=== PATIENT | male | born 1945 | race Caucasian/White ===

== ENCOUNTER 2019-01-06 15:01 | Emergency (ER) | payer MEDICARE, OTHER, SELFPAY ==
[2019-01-06 15:17] VITALS: BP 129/76; PULSE 85; RESP 26; TEMP 36.4; O2SAT 93; BMI 30.9
[2019-01-06 15:22] VITALS: BP 129/76; PULSE 85; RESP 26; TEMP 36.4; O2SAT 93; BMI 30.9
--- NOTE | 2019-01-06 16:01 | DI.RAD.S_ITS ---
PROCEDURE: XR CHEST 1V INDICATIONS: short of breath TECHNIQUE: One view of the chest was acquired. COMPARISON: [facility], , CHEST 2 VIEW, 08/08/2011, 12:39. 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 Lungs and pleura: Minimal increased pulmonary vascularity. No pleural effusions or pneumothorax. Mediastinum: Mediastinal contours appear normal. Heart size is normal. Bones and chest wall: No suspicious bony lesions. Overlying soft tissues appear unremarkable. IMPRESSION: Minimal increased pulmonary vascularity suggestive of edema. Dictated by: Dyana Peace M.D. on 01/06/2019 at 16:27 Approved by: Dyana Peace M.D. on 01/06/2019 at 16:29
--- NOTE | 2019-01-06 16:02 | ED.SOB ---
HPI - SOB/Dyspnea General Chief Complaint: Shortness of Breath/Dyspnea Stated Complaint: Pnuemonia not improving Time Seen by Provider: 01/06/19 15:31 Source: patient Mode of arrival: ambulatory Limitations: no limitations History of Present Illness patient is a marc 73-year-old male who presents with increasing shortness of breath. He has been on a Z-Leroy in Kef[place] for bronchitis family states that he is not getting any better. He has now started sleeping in a recliner because he cannot breathe while sleeping at night. He has not had any fevers chills no lower extremity edema no chest pain. He has worsening shortness of breath with minimal exertion such as getting dressed or going to the restroom. MD Complaint: shortness of breath Context: recent illness Severity: moderate Consistency/Duration: progressively worsening Relieving factors: rest Exacerbating factors: lying flat Related Data Allergies Allergy/AdvReac Type Severity Reaction Status Date / Time No Known Drug Allergies Allergy Verified 01/06/19 15:17 Review of Systems Review of Systems ROS Unobtainable: All systems reviewed & are unremarkable except as noted in HPI and below Constitutional Denies chills, Denies fever(s), Denies lethargy and Denies weakness Cardiovascular Denies chest pain, Denies irregular heart rhythm, Denies leg edema, Denies lightheadedness, Denies palpitations, Reports dyspnea, Reports dyspnea on exertion and Denies orthopnea Respiratory Denies cough, Reports dyspnea, Reports dyspnea on exertion and Denies wheezing Gastrointestinal Gastrointestinal: Denies abdominal pain, Denies change in bowel habits, Denies diarrhea, Denies nausea and Denies vomiting Musculoskeletal Denies back pain, Denies muscle weakness, Denies numbness and Denies tingling Integumentary/Breasts Denies pruritus, Denies erythema, Denies rash and Denies wounds Neurologic Denies numbness, Denies tingling and Denies weakness Endocrine Denies palpitations Allergic/Immunologic Denies wheezing [facility] Medical History Patient denies significant medical history (Acute) Social History Smoking Status: Never smoker Social History Smoking Status: Never smoker Exam Initial Vital Signs Initial Vital Signs: Vital Signs Temperature 97.6 F 01/06/19 15:17 Pulse Rate 85 01/06/19 15:17 Respiratory Rate 26 H 01/06/19 15:17 Blood Pressure 129/76 01/06/19 15:17 Pulse Oximetry 93 01/06/19 15:17 GENERAL: alert well-appearing male no acute distress HEENT: Head atraumatic,EOMI, pupils reactive, no JVD CARDIOVASCULAR: Regular rate and rhythm without murmurs, rubs or gallops. RESPIRATORY: slight rales at bases no conversational dyspnea weeks in full sentences no tachypnea ABDOMEN: Soft, nontender. Normoactive bowel sounds all 4 quadrants. No guarding or rebound. EXTREMITIES: Normal range of motion, no clubbing or edema. Neurovascularly intact NEUROLOGICAL: Alert and oriented x4.Normal gait and speech. Cranial nerves II through XII grossly intact. SKIN: Warm, dry, no laceration, no petechiae, no rashes or lesions. Course Orders Ordered: ED Orders 01/06/19 15:25 EKG-12 Lead Stat 01/06/19 16:01 Consult to Respiratory Therapy Evaluate & Treat XR chest 1V Stat 01/06/19 16:10 Basic Metabolic Panel Stat Complete Blood Count AUTO DIFF Stat Lactate (Lactic Acid) Stat Troponin & CK Cardiac Panel Stat 01/06/19 16:34 B Type Natriuretic Peptide Stat Discontinued Medications Albuterol (Ventolin Hfa Prepack) 1 box MISC SEEINSTR ONE Stop: 01/06/19 18:51 Last Admin: 01/06/19 18:56 Dose: 1 box Albuterol/Ipratropium (Duoneb) 3 ml INH NOW ONE Stop: 01/06/19 16:02 Last Admin: 01/06/19 16:30 Dose: 3 ml Furosemide (Lasix) 20 mg IV NOW ONE Stop: 01/06/19 17:24 Last Admin: 01/06/19 17:36 Dose: 20 mg Vital Signs - 8 hr 01/06/19 15:17 01/06/19 15:22 01/06/19 16:31 Temperature 97.6 F 97.6 F Pulse Rate 85 85 78 Respiratory Rate 26 H 26 H 20 Blood Pressure 129/76 129/76 Blood Pressure [Right Arm] Pulse Oximetry 93 93 93 01/06/19 16:52 Temperature Pulse Rate 85 Respiratory Rate 20 Blood Pressure Blood Pressure [Right Arm] 136/64 Pulse Oximetry 92 MDM - SOB/Dyspnea Lab Data Attestation: I reviewed the patient's lab results. Result diagrams: 01/06/19 16:10 01/06/19 16:10 Lab Results 01/06/19 01/06/19 01/06/19 Range/Units 16:10 16:10 16:10 WBC 10.0 (4.5-11.0) X10^3/uL RBC 5.19 (4.5-5.9) X10^6/uL Hgb 14.9 (13.5-17.5) g/dL Hct 44.7 (41-53) % MCV 86.1 (80-100) fL MCH 28.7 (26-34) PG MCHC 33.3 (30-36) % RDW 14.5 (11.6-14.8) % Plt Count 296 (150-400) X10^3/uL Neut % (Auto) 74.3 (50-75) % Lymph % (Auto) 12.7 L (25-40) % [place] % (Auto) 9.3 (3-14) % Eos % (Auto) 2.5 (2-4) % Baso % (Auto) 1.2 (0-2) % Neut # (Auto) 7400 H (8987-0485) /uL Lymph # (Auto) 1300 (1356-5046) /uL [place] # (Auto) 900 (0-900) /uL Eos # (Auto) 300 (0-450) /uL Baso # (Auto) 100 (0-100) /uL Sodium 138 (137-145) mmol/L Potassium 3.8 (3.4-5.1) mmol/L Chloride 102 (98-107) mmol/L Carbon Dioxide 23 (22-32) mmol/L BUN 11 (9-20) mg/dL Creatinine 0.90 (0.66-1.25) mg/dL Estimated GFR > 60.0 (>60) mL/min BUN/Creatinine Ratio 12.2 (6-22) Glucose 124 H (80-110) mg/dL Lactate 1.8 (0.7-2.1) mmol/L Calcium 9.1 (8.4-10.2) mg/dL Total Creatine Kinase 44 L (55-170) U/L CK-MB (CK-2) TNP CK-MB (CK-2) Rel Index TNP Troponin I < 0.012 (0.01-0.034) ng/mL B-Natriuretic Peptide (<100) 01/06/19 Range/Units 16:34 WBC (4.5-11.0) X10^3/uL RBC (4.5-5.9) X10^6/uL Hgb (13.5-17.5) g/dL Hct (41-53) % MCV (80-100) fL MCH (26-34) PG MCHC (30-36) % RDW (11.6-14.8) % Plt Count (150-400) X10^3/uL Neut % (Auto) (50-75) % Lymph % (Auto) (25-40) % [place] % (Auto) (3-14) % Eos % (Auto) (2-4) % Baso % (Auto) (0-2) % Neut # (Auto) (2504-7179) /uL Lymph # (Auto) (2340-0258) /uL [place] # (Auto) (0-900) /uL Eos # (Auto) (0-450) /uL Baso # (Auto) (0-100) /uL Sodium (137-145) mmol/L Potassium (3.4-5.1) mmol/L Chloride (98-107) mmol/L Carbon Dioxide (22-32) mmol/L BUN (9-20) mg/dL Creatinine (0.66-1.25) mg/dL Estimated GFR (>60) mL/min BUN/Creatinine Ratio (6-22) Glucose (80-110) mg/dL Lactate (0.7-2.1) mmol/L Calcium (8.4-10.2) mg/dL Total Creatine Kinase (55-170) U/L CK-MB (CK-2) CK-MB (CK-2) Rel Index Troponin I (0.01-0.034) ng/mL B-Natriuretic Peptide < 100 (<100) Urine Dip Bedside Urine Glucose Negative Bedside Urine Bilirubin - Negative Bedside Urine Ketone - Negative Urine Specific [place] 1.015 Bedside Urine Occult Blood - Negative Bedside Urine pH 6.0 Bedside Urine Protein - Negative Bedside Urine Urobilinogen - Negative Bedside Urine Nitrite - Negative Bedside Urine Leukocytes - Negative Esterase Imaging Data Chest x-ray: Radiologist's impression: PROCEDURE: XR CHEST 1V INDICATIONS: short of breath TECHNIQUE: One view of the chest was acquired. COMPARISON: [facility], , CHEST 2 VIEW, 08/08/2011, 12:39. FINDINGS: Surgical changes and devices: Tubing overlying the right neck and hemithorax, likely ST[employer] DERRICK[employer]GER shunt. Lungs and pleura: Minimal increased pulmonary vascularity. No pleural effusions or pneumothorax. Mediastinum: Mediastinal contours appear normal. Heart size is normal. Bones and chest wall: No suspicious bony lesions. Overlying soft tissues appear unremarkable. IMPRESSION: Minimal increased pulmonary vascularity suggestive of edema. Dictated by: Dyana Peace M.D. on 01/06/2019 at 16:27 ECG Data Attestation: I personally reviewed and interpreted this ECG as follows: Prior ECG tracings: available for review MDM Narrative Medical decision making narrative: Patient is sound slightly wet but actually cleared with albuterol. X-ray does show some mild pulmonary congestion however his BNP is less than 100. No history of congestive heart failure no edema. He also does have some orthopnea. Patient is given 1 dose of Lasix in the ED he has urinated multiple times. He and family state that he got significantly better with albuterol. at this time not convinced of congestive heart failure. Possibly bronchitis he has had coughing episodes into antibiotics. This time he has no leukocytosis he is afebrile I do not think he needs any further antibiotics. I do recommend follow-up with his PCP in regards to his heart. He had an ambulation trial O2 remained above 90 with conversation and ambulation. Discharge Plan Departure Patient Disposition: Home Clinical Impression: Bronchitis Instructions: Acute Bronchitis Activity Restrictions/Additional Instructions: *You have been diagnosed with Bronchitis *What to do: at this time you do some mild fluid on your x-ray recommend further evaluation of your heart for possible congestive heart failure with your primary care doctor. This is likely more of a bronchitis you have already been on antibiotics. No need for more antibiotic. X-ray does not show any pneumonia. Blood work also reassuring. *Continue to take medications as directed Albuterol 1-2 puffs with spacer every 4 hr if needed for coughing episodes or shortness of breath *Follow up with your primary care provider in 2-3 days *Return to ER if you should have increasing shortness of breath, fever, albuterol not working or needing it more frequently or any new, worsening or concerning symptoms Referrals: Danish Nielson MD [Primary Care Provider] -
[2019-01-06 16:22] LABS: Add Manual Diff / Slide Review NO; Basophils Absolute Auto 100 /uL (0-100); Basophils Percent Auto 1.2 % (0-2); Eosinophils Absolute Auto 300 /uL (0-450); Eosinophils Percent Auto 2.5 % (2-4); Hematocrit 44.7 % (41-53); Hemoglobin 14.9 g/dL (13.5-17.5); Lymphocytes Absolute Auto 1300 /uL (1100-4500); Lymphocytes Percent Auto 12.7 % (25-40); Mean Corpuscular HGB Conc 33.3 % (30-36); Mean Corpuscular Hemoglobin 28.7 PG (26-34); Mean Corpuscular Volume 86.1 fL (80-100); Monocytes Absolute Auto 900 /uL (0-900); Monocytes Percent Auto 9.3 % (3-14); Neutrophils Absolute Auto 7400 /uL (1500-7000); Neutrophils Percent Auto 74.3 % (50-75); Platelet Count 296 X10^3/uL (150-400); Red Blood Cell Count 5.19 X10^6/uL (4.5-5.9); Red Cell Distribution Width 14.5 % (11.6-14.8)
[2019-01-06 16:30] LABS: Lactate (Lactic Acid) 1.8 mmol/L (0.7-2.1)
[2019-01-06] MEDS: ALBUTEROL/IPRATROPIUM 3 ML AMPUL INH (16:30)
[2019-01-06 16:31] VITALS: PULSE 78; RESP 20; O2SAT 93
[2019-01-06 16:31] LABS: BUN Creatinine Ratio 12.2 (6-22); Blood Urea Nitrogen 11 mg/dL (9-20); Calcium 9.1 mg/dL (8.4-10.2); Carbon Dioxide 23 mmol/L (22-32); Chloride 102 mmol/L (98-107); Creatine Kinase 44 U/L (55-170); Estimated Glomerular Filt Rate > 60.0 mL/min (>60); Glucose 124 mg/dL (80-110); HEMOLYSIS < 15 (0-50); Potassium 3.8 mmol/L (3.4-5.1); Sodium 138 mmol/L (137-145)
[2019-01-06 16:43] LABS: Troponin I < 0.012 ng/mL (0.01-0.034)
[2019-01-06 16:52] VITALS: BP 136/64; PULSE 85; RESP 20; O2SAT 92
[2019-01-06] MEDS: FUROSEMIDE 20 MG/2 ML VIAL IV (17:36)
[2019-01-06 17:44] LABS: B Type Natriuretic Peptide < 100 (<100)
[2019-01-06 17:45] VITALS: BP 153/83; PULSE 112; RESP 20; O2SAT 99
--- NOTE | 2019-01-06 18:37 | RT ---
Pt instructed proper MDI and spacer usage; spacer issued with pamphlet.
[2019-01-06] MEDS: ALBUTEROL HFA PREPACK 1 BOX MISC (18:56)
[2019-01-06 19:41] VITALS: BP 141/79; PULSE 104; RESP 18; TEMP 37.1; O2SAT 99
== END 2019-01-06 19:44 | disposition home or self-care (01) ==
PROVIDERS: Emergency Provider Emergency Medicine; PCP Family Medicine
DX: J40 Bronchitis, not specified as acute or chronic (principal)
CPT/HCPCS: 36591; 71045; 80048; 81003; 82550; 83605; 83880; 84484; 85025; 93005; 94640; 96374; 99283; 99285; J1940

== ENCOUNTER 2019-01-25 11:33 | Emergency (ER) | payer MEDICARE, OTHER, SELFPAY ==
[2019-01-25 11:44] VITALS: BP 124/72; PULSE 97; RESP 22; TEMP 36.5; O2SAT 93
[2019-01-25 13:03] LABS: Add Manual Diff / Slide Review NO; Basophils Absolute Auto 100 /uL (0-100); Basophils Percent Auto 0.8 % (0-2); Eosinophils Absolute Auto 300 /uL (0-450); Eosinophils Percent Auto 2.2 % (2-4); Hematocrit 47.2 % (41-53); Hemoglobin 15.4 g/dL (13.5-17.5); Lymphocytes Absolute Auto 1300 /uL (1100-4500); Lymphocytes Percent Auto 10.9 % (25-40); Mean Corpuscular HGB Conc 32.7 % (30-36); Mean Corpuscular Hemoglobin 28.3 PG (26-34); Mean Corpuscular Volume 86.6 fL (80-100); Monocytes Absolute Auto 1000 /uL (0-900); Monocytes Percent Auto 8.9 % (3-14); Neutrophils Absolute Auto 9000 /uL (1500-7000); Neutrophils Percent Auto 77.2 % (50-75); Platelet Count 325 X10^3/uL (150-400); Red Blood Cell Count 5.45 X10^6/uL (4.5-5.9); Red Cell Distribution Width 14.8 % (11.6-14.8); White Blood Cell Count 11.7 X10^3/uL (4.5-11.0)
--- NOTE | 2019-01-25 13:05 | ED.URI ---
HPI - URI/Sore Throat General Chief Complaint: Upper Respiratory Symptoms Stated Complaint: bronchitis and pneumonia,sent by Dr Nielson Time Seen by Provider: 01/25/19 11:56 Source: patient and other (note from pcp's office) Mode of arrival: ambulatory Limitations: no limitations History of Present Illness HPI Narrative: This is a 73-year-old male who comes to the emergency department with complaint of shortness of breath. Patient states it gets worse when he walks. Patient states he has been treated with antibiotics, is a little bit of Lasix as well as nebulizer treatments. He states that they seem to make it a little bit better but then he would get worse again. He denies any fevers. He denies any chest pain or pressure, he states he does get short of breath when he ambulates any kind a distance. If he is sitting still he states fine. He has had a cough which he states is mild and nonproductive. He denies any nausea no vomiting no other GI or urinary symptoms. He has not noted any swelling in his lower extremities. States he had a chest x-ray earlier in the week which showed some kind of change he is unclear what it is but that he was asked by his physician who called him today to go to the hospital to get a CT scan of his chest. Patient denies any past cardiac history, he denies any past pulmonary history, he denies any past tobacco use or secondhand smoke. Related Data Home Medications Medication Instructions Recorded Confirmed furosemide 20 mg PO DAILY 01/25/19 01/25/19 ipratropium-albuterol 3 ml INHALATION QID 01/25/19 01/25/19 omeprazole 20 mg PO DAILY 01/25/19 01/25/19 simvastatin 40 mg PO DAILY 01/25/19 01/25/19 telmisartan [Micardis] 40 mg PO DAILY 01/25/19 01/25/19 Previous Rx's Medication Instructions Recorded doxycycline hyclate 100 mg PO BID #20 cap 01/25/19 Allergies Allergy/AdvReac Type Severity Reaction Status Date / Time No Known Drug Allergies Allergy Verified 01/06/19 15:17 Review of Systems Review of Systems ROS Unobtainable: All systems reviewed & are unremarkable except as noted in HPI and below Constitutional Denies chills, Denies fever(s), Denies lethargy and Denies weakness Cardiovascular Denies chest pain, Denies chest pain at rest, Denies chest pain with activity, Denies diaphoresis, Denies syncope, Denies rapid heart rate, Denies irregular heart rhythm, Denies leg edema, Denies lightheadedness, Denies radiating jaw, neck or arm pain, Denies palpitations, Reports dyspnea on exertion and Denies orthopnea Respiratory Denies change in phlegm color, Denies chest congestion, Reports cough, Denies hemoptysis, Denies excessive phlegm production, Denies pain with cough, Reports dyspnea on exertion and Denies wheezing Gastrointestinal Gastrointestinal: Denies abdominal pain, Denies change in bowel habits, Denies diarrhea, Denies nausea and Denies vomiting Genitourinary Denies hematuria, Denies flank pain, Denies urinary incontinence and Denies urinary urgency Neurologic Denies syncope and Denies weakness Endocrine Denies palpitations Allergic/Immunologic Denies wheezing [facility] Medical History Dyslipidemia (Acute) Hypertension (Acute) Patient denies significant medical history (Acute) Social History Smoking Status: Never smoker Social History household members: none lives independently: Yes Smoking Status: Never smoker Exam Narrative Exam Narrative: GENERAL: Alert and oriented x three, well-nourished, well-appearing male in mild distress. HEENT: Head normocephalic, atraumatic, EOMI, pupils reactive, face symmetric, moist mucous membranes NECK: Supple, full range of motion CARDIOVASCULAR: Regular rate and rhythm without murmurs, rubs or gallops. RESPIRATORY: Breath sounds equal bilaterally, no wheezes rales or rhonchi. No tachypnea, no accessory muscle use. The patient has very mild dry cough in the room. ABDOMEN: Soft, nontender. Normoactive bowel sounds all 4 quadrants. No guarding or rebound, rigidity, no mass : No CVA tenderness EXTREMITIES: Normal range of motion, no clubbing or edema. Neurovascularly intact NEUROLOGICAL: Cranial nerves II through XII grossly intact. Moving all extremities SKIN: Warm, dry, no petechiae, no rashes or lesions. Initial Vital Signs Initial Vital Signs: Vital Signs Temperature 97.7 F 01/25/19 11:44 Pulse Rate 97 H 01/25/19 11:44 Respiratory Rate 22 01/25/19 11:44 Blood Pressure 124/72 01/25/19 11:44 Pulse Oximetry 93 01/25/19 11:44 Course Orders Ordered: ED Orders 01/25/19 12:22 EKG-12 Lead Stat 01/25/19 12:42 B Type Natriuretic Peptide Stat Basic Metabolic Panel Stat Complete Blood Count AUTO DIFF Stat Troponin & CK Cardiac Panel Stat 01/25/19 14:03 CT angio chest PE protocol Stat Vital Signs - 8 hr 01/25/19 11:44 01/25/19 13:06 01/25/19 15:54 Temperature 97.7 F Pulse Rate 97 H 91 H 110 H Respiratory Rate 22 20 28 H Blood Pressure 124/72 Blood Pressure [Left Arm] 112/73 Pulse Oximetry 93 97 93 01/25/19 16:41 Temperature Pulse Rate 93 H Respiratory Rate 20 Blood Pressure Blood Pressure [Left Arm] 147/90 H Pulse Oximetry 94 MDM - URI/Sore Throat Lab Data Attestation: I reviewed the patient's lab results. Result diagrams: 01/25/19 12:42 01/25/19 12:42 Lab Results 01/25/19 01/25/19 Range/Units 12:42 12:42 WBC 11.7 H (4.5-11.0) X10^3/uL RBC 5.45 (4.5-5.9) X10^6/uL Hgb 15.4 (13.5-17.5) g/dL Hct 47.2 (41-53) % MCV 86.6 (80-100) fL MCH 28.3 (26-34) PG MCHC 32.7 (30-36) % RDW 14.8 (11.6-14.8) % Plt Count 325 (150-400) X10^3/uL Neut % (Auto) 77.2 H (50-75) % Lymph % (Auto) 10.9 L (25-40) % [place] % (Auto) 8.9 (3-14) % Eos % (Auto) 2.2 (2-4) % Baso % (Auto) 0.8 (0-2) % Neut # (Auto) 9000 H (8518-9518) /uL Lymph # (Auto) 1300 (2418-5903) /uL [place] # (Auto) 1000 H (0-900) /uL Eos # (Auto) 300 (0-450) /uL Baso # (Auto) 100 (0-100) /uL Sodium 137 (137-145) mmol/L Potassium 4.1 (3.4-5.1) mmol/L Chloride 100 (98-107) mmol/L Carbon Dioxide 24 (22-32) mmol/L BUN 20 (9-20) mg/dL Creatinine 1.10 (0.66-1.25) mg/dL Estimated GFR > 60.0 (>60) mL/min BUN/Creatinine Ratio 18.2 (6-22) Glucose 103 (80-110) mg/dL Calcium 9.6 (8.4-10.2) mg/dL Total Creatine Kinase 44 L (55-170) U/L CK-MB (CK-2) TNP CK-MB (CK-2) Rel Index TNP Troponin I < 0.012 (0.01-0.034) ng/mL B-Natriuretic Peptide < 100 (<100) Imaging Data CT scan - chest: Radiologist's impression: 44 Alicja Beckford, Find Patient Imaging Josue Ross 73 M 1945 ACTIVITY DATE EXAM STATUS AUTHOR 01/25/19 14:03 [place] [address] CT Scan Report Signed Patient: Josue Ross R#: [id number] : 3Acct:[id number] Age/Sex: 73 / MDate of Service: 01/25/19 Loc: ED Accession Number: [id number] Procedure: CT angio chest PE protocol Ordering Provider: Alicja Beckford D.O. PROCEDURE: CT ANGIO CHEST PE PROTOCOL INDICATIONS: sob, failed tx for pna x 3, ? on outside xray TECHNIQUE: After the administration of intravenous contrast, 2 mm thick sections acquired from the pulmonary apices to the posterior costophrenic angles. 3-dimensional maximum intensity projection (MIP) coronal and sagittal reformats were then acquired through the thorax. For radiation dose reduction, the following was used: automated exposure control, adjustment of mA and/or kV according to patient size. COMPARISON: [facility], , XR CHEST 1V, 01/06/2019, 16:16. FINDINGS: Image quality: Excellent. Pulmonary arteries: Pulmonary arteries are normal in size, and demonstrate no intraluminal filling defects to suggest central pulmonary embolism. Lungs and pleura: Focal and patchy consolidation noted in the lung bases bilaterally right greater than left concerning for aspiration versus pneumonia. Trace right pleural effusion. No pneumothorax. Central and peripheral airways are patent. Mediastinum: Heart size is normal, without pericardial effusion. Atherosclerotic calcifications are noted in the aorta, great vessels and the coronary vasculature. No mediastinal or hilar adenopathy. Thoracic aorta is normal in caliber and enhancement. Esophagus is normal in caliber, without hiatal hernia. Bones and chest wall: No suspicious bony lesions. Ribs and thoracic spine appear intact throughout. Spine degenerative disc disease and facet arthropathy. Thyroid gland is within normal limits. No axillary or supraclavicular adenopathy. Abdomen: Visualized upper abdominal solid organs appear normal in the early arterial phase of enhancement. IMPRESSION: 1. No pulmonary embolus. 2. Multifocal consolidation involving the lung bases bilaterally suspicious for pneumonia versus aspiration. Dictated by: Soo Verdugo MD, PhD on 01/25/2019 at 14:51 Approved by: Soo Verdugo MD, PhD on 01/25/2019 at 14:58 ECG Data Attestation: I personally reviewed and interpreted this ECG as follows: Interpretation: Sinus rhythm no ST elevation or depression, left axis deviation rate of 89 LA interval 175 QRS of 90 and QTC of 395. MDM Narrative Medical decision making narrative: patient's lab works reviewed white count is 11, troponin and BNP are normal range. CT shows no plate pulmonary embolism. Multifocal consolidation involving lung bases bilaterally suspicious for pneumonia versus aspiration. I discussed with Dr. Early who is covering for patient's primary care Dr. Nielson. Discussed continuing his antibiotics which he states were doxycycline for another 7 days and 100 mg twice daily. Patient has follow-up on Monday for recheck we also discussed they may wish to follow or evaluate patient for aspiration. I also discussed this with the patient and his family. Patient had an ambulatory pulse ox of 93-94%. Discharge Plan Departure Patient Disposition: Home Clinical Impression: Dyspnea, Pneumonia Discharge Date/Time: 01/25/19 16:42 Interventions: ED Discharge Assessment Last Done: 01/25/19 16:42 Instructions: DI for Pneumonia -- Adult Activity Restrictions/Additional Instructions: Follow-up with your primary care physician in the next 3-5 days for recheck. Continue antibiotics twice daily as prescribed. Continue your other home medications as prescribed. Discussed with your physician if they wish to have a swallow eval or other testing regarding possible aspiration causing her symptoms. Return to the emergency department for new fevers, increasing shortness of breath, new chest pain or pressure, syncope, lightheadedness, persistent vomiting or other new or concerning symptoms. Prescriptions: New doxycycline hyclate 100 mg capsule 100 mg PO BID Qty: 20 RF: 0 No Action ipratropium-albuterol 0.5 mg-3 mg(2.5 mg base)/3 mL solution for nebulization 3 ml Inhalation QID RF: 0 simvastatin 40 mg tablet 40 mg PO DAILY RF: 0 telmisartan [Micardis] 40 mg tablet 40 mg PO DAILY RF: 0 omeprazole 20 mg capsule,delayed release(DR/EC) 20 mg PO DAILY RF: 0 furosemide 20 mg tablet 20 mg PO DAILY RF: 0 Referrals: Danish Nielson MD [Primary Care Provider] -
[2019-01-25 13:06] VITALS: BP 112/73; PULSE 91; RESP 20; O2SAT 97
[2019-01-25 13:12] LABS: BUN Creatinine Ratio 18.2 (6-22); Blood Urea Nitrogen 20 mg/dL (9-20); Calcium 9.6 mg/dL (8.4-10.2); Carbon Dioxide 24 mmol/L (22-32); Chloride 100 mmol/L (98-107); Creatine Kinase 44 U/L (55-170); Estimated Glomerular Filt Rate > 60.0 mL/min (>60); Glucose 103 mg/dL (80-110); HEMOLYSIS < 15 (0-50); Potassium 4.1 mmol/L (3.4-5.1); Sodium 137 mmol/L (137-145)
[2019-01-25 13:24] LABS: Troponin I < 0.012 ng/mL (0.01-0.034)
[2019-01-25 13:40] LABS: B Type Natriuretic Peptide < 100 (<100)
--- NOTE | 2019-01-25 14:03 | DI.CT.S_ITS ---
PROCEDURE: CT ANGIO CHEST PE PROTOCOL INDICATIONS: sob, failed tx for pna x 3, ? on outside xray TECHNIQUE: After the administration of intravenous contrast, 2 mm thick sections acquired from the pulmonary apices to the posterior costophrenic angles. 3-dimensional maximum intensity projection (MIP) coronal and sagittal reformats were then acquired through the thorax. For radiation dose reduction, the following was used: automated exposure control, adjustment of mA and/or kV according to patient size. COMPARISON: [facility], , XR CHEST 1V, 01/06/2019, 16:16. FINDINGS: Image quality: Excellent. Pulmonary arteries: Pulmonary arteries are normal in size, and demonstrate no intraluminal filling defects to suggest central pulmonary embolism. Lungs and pleura: Focal and patchy consolidation noted in the lung bases bilaterally right greater than left concerning for aspiration versus pneumonia. Trace right pleural effusion. No pneumothorax. Central and peripheral airways are patent. Mediastinum: Heart size is normal, without pericardial effusion. Atherosclerotic calcifications are noted in the aorta, great vessels and the coronary vasculature. No mediastinal or hilar adenopathy. Thoracic aorta is normal in caliber and enhancement. Esophagus is normal in caliber, without hiatal hernia. Bones and chest wall: No suspicious bony lesions. Ribs and thoracic spine appear intact throughout. Spine degenerative disc disease and facet arthropathy. Thyroid gland is within normal limits. No axillary or supraclavicular adenopathy. Abdomen: Visualized upper abdominal solid organs appear normal in the early arterial phase of enhancement. IMPRESSION: 1. No pulmonary embolus. 2. Multifocal consolidation involving the lung bases bilaterally suspicious for pneumonia versus aspiration. Dictated by: Soo Verdugo MD, PhD on 01/25/2019 at 14:51 Approved by: Soo Verdugo MD, PhD on 01/25/2019 at 14:58
--- NOTE | 2019-01-25 14:32 | ED_ITS ---
HPI - URI/Sore Throat General Chief Complaint: Upper Respiratory Symptoms Stated Complaint: bronchitis and pneumonia,sent by Dr Nielson Time Seen by Provider: 01/25/19 11:56 Source: patient and other (note from pcp's office) Mode of arrival: ambulatory Limitations: no limitations History of Present Illness HPI Narrative: This is a 73-year-old male who comes to the emergency department with complaint of shortness of breath. Patient states it gets worse when he walks. Patient states he has been treated with antibiotics, is a little bit of Lasix as well as nebulizer treatments. He states that they seem to make it a little bit better but then he would get worse again. He denies any fevers. He denies any chest pain or pressure, he states he does get short of breath when he ambulates any kind a distance. If he is sitting still he states fine. He has had a cough which he states is mild and nonproductive. He denies any nausea no vomiting no other GI or urinary symptoms. He has not noted any swelling in his lower extremities. States he had a chest x-ray earlier in the week which showed some kind of change he is unclear what it is but that he was asked by his physician who called him today to go to the hospital to get a CT scan of his chest. Patient denies any past cardiac history, he denies any past pulmonary history, he denies any past tobacco use or secondhand smoke. Related Data Home Medications Medication Instructions Recorded Confirmed furosemide 20 mg PO DAILY 01/25/19 01/25/19 ipratropium-albuterol 3 ml INHALATION QID 01/25/19 01/25/19 omeprazole 20 mg PO DAILY 01/25/19 01/25/19 simvastatin 40 mg PO DAILY 01/25/19 01/25/19 telmisartan [Micardis] 40 mg PO DAILY 01/25/19 01/25/19 Previous Rx's Medication Instructions Recorded doxycycline hyclate 100 mg PO BID #20 cap 01/25/19 Allergies Allergy/AdvReac Type Severity Reaction Status Date / Time No Known Drug Allergies Allergy Verified 01/06/19 15:17 Review of Systems Review of Systems ROS Unobtainable: All systems reviewed & are unremarkable except as noted in HPI and below Constitutional Denies chills, Denies fever(s), Denies lethargy and Denies weakness Cardiovascular Denies chest pain, Denies chest pain at rest, Denies chest pain with activity, Denies diaphoresis, Denies syncope, Denies rapid heart rate, Denies irregular heart rhythm, Denies leg edema, Denies lightheadedness, Denies radiating jaw, neck or arm pain, Denies palpitations, Reports dyspnea on exertion and Denies orthopnea Respiratory Denies change in phlegm color, Denies chest congestion, Reports cough, Denies hemoptysis, Denies excessive phlegm production, Denies pain with cough, Reports dyspnea on exertion and Denies wheezing Gastrointestinal Gastrointestinal: Denies abdominal pain, Denies change in bowel habits, Denies diarrhea, Denies nausea and Denies vomiting Genitourinary Denies hematuria, Denies flank pain, Denies urinary incontinence and Denies urinary urgency Neurologic Denies syncope and Denies weakness Endocrine Denies palpitations Allergic/Immunologic Denies wheezing [facility] Medical History Dyslipidemia (Acute) Hypertension (Acute) Patient denies significant medical history (Acute) Social History Smoking Status: Never smoker Social History household members: none lives independently: Yes Smoking Status: Never smoker Exam Narrative Exam Narrative: GENERAL: Alert and oriented x three, well-nourished, well- appearing male in mild distress. HEENT: Head normocephalic, atraumatic, EOMI, pupils reactive, face symmetric, moist mucous membranes NECK: Supple, full range of motion CARDIOVASCULAR: Regular rate and rhythm without murmurs, rubs or gallops. RESPIRATORY: Breath sounds equal bilaterally, no wheezes rales or rhonchi. No tachypnea, no accessory muscle use. The patient has very mild dry cough in the room. ABDOMEN: Soft, nontender. Normoactive bowel sounds all 4 quadrants. No guarding or rebound, rigidity, no mass : No CVA tenderness EXTREMITIES: Normal range of motion, no clubbing or edema. Neurovascularly intact NEUROLOGICAL: Cranial nerves II through XII grossly intact. Moving all extremities SKIN: Warm, dry, no petechiae, no rashes or lesions. Initial Vital Signs Initial Vital Signs: Vital Signs Temperature 97.7 F 01/25/19 11:44 Pulse Rate 97 H 01/25/19 11:44 Respiratory Rate 22 01/25/19 11:44 Blood Pressure 124/72 01/25/19 11:44 Pulse Oximetry 93 01/25/19 11:44 Course Orders Ordered: ED Orders 01/25/19 12:22 EKG-12 Lead Stat 01/25/19 12:42 B Type Natriuretic Peptide Stat Basic Metabolic Panel Stat Complete Blood Count AUTO DIFF Stat Troponin & CK Cardiac Panel Stat 01/25/19 14:03 CT angio chest PE protocol Stat Vital Signs - 8 hr 01/25/19 11:44 01/25/19 13:06 01/25/19 15:54 Temperature 97.7 F Pulse Rate 97 H 91 H 110 H Respiratory Rate 22 20 28 H Blood Pressure 124/72 Blood Pressure [Left Arm] 112/73 Pulse Oximetry 93 97 93 01/25/19 16:41 Temperature Pulse Rate 93 H Respiratory Rate 20 Blood Pressure Blood Pressure [Left Arm] 147/90 H Pulse Oximetry 94 MDM - URI/Sore Throat Lab Data Attestation: I reviewed the patient's lab results. Result diagrams: 01/25/19 12:42 01/25/19 12:42 Lab Results 01/25/19 01/25/19 Range/Units 12:42 12:42 WBC 11.7 H (4.5-11.0) X10^3/uL RBC 5.45 (4.5-5.9) X10^6/uL Hgb 15.4 (13.5-17.5) g/dL Hct 47.2 (41-53) % MCV 86.6 (80-100) fL MCH 28.3 (26-34) PG MCHC 32.7 (30-36) % RDW 14.8 (11.6-14.8) % Plt Count 325 (150-400) X10^3/uL Neut % (Auto) 77.2 H (50-75) % Lymph % (Auto) 10.9 L (25-40) % [place] % (Auto) 8.9 (3-14) % Eos % (Auto) 2.2 (2-4) % Baso % (Auto) 0.8 (0-2) % Neut # (Auto) 9000 H (5304-0199) /uL Lymph # (Auto) 1300 (6451-1629) /uL [place] # (Auto) 1000 H (0-900) /uL Eos # (Auto) 300 (0-450) /uL Baso # (Auto) 100 (0-100) /uL Sodium 137 (137-145) mmol/L Potassium 4.1 (3.4-5.1) mmol/L Chloride 100 (98-107) mmol/L Carbon Dioxide 24 (22-32) mmol/L BUN 20 (9-20) mg/dL Creatinine 1.10 (0.66-1.25) mg/dL Estimated GFR > 60.0 (>60) mL/min BUN/Creatinine Ratio 18.2 (6-22) Glucose 103 (80-110) mg/dL Calcium 9.6 (8.4-10.2) mg/dL Total Creatine Kinase 44 L (55-170) U/L CK-MB (CK-2) TNP CK-MB (CK-2) Rel Index TNP Troponin I < 0.012 (0.01-0.034) ng/mL B-Natriuretic Peptide < 100 (<100) Imaging Data CT scan - chest: Radiologist's impression: 44 Alicja Beckford, Find Patient Imaging Josue Ross 73 M 1945 ACTIVITY DATE EXAM STATUS AUTHOR 01/25/19 14:03 [place] [address] CT Scan Report Signed Patient: Josue Ross R#: [id number] : 3Acct:[id number] Age/Sex: 73 / MDate of Service: 01/25/19 Loc: ED Accession Number: [id number] Procedure: CT angio chest PE protocol Ordering Provider: Alicja Beckford D.O. PROCEDURE: CT ANGIO CHEST PE PROTOCOL INDICATIONS: sob, failed tx for pna x 3, ? on outside xray TECHNIQUE: After the administration of intravenous contrast, 2 mm thick sections acquired from the pulmonary apices to the posterior costophrenic angles. 3-dimensional maximum intensity projection (MIP) coronal and sagittal reformats were then acquired through the thorax. For radiation dose reduction, the following was used: automated exposure control, adjustment of mA and/or kV according to patient size. COMPARISON: [facility], , XR CHEST 1V, 01/06/2019, 16:16. FINDINGS: Image quality: Excellent. Pulmonary arteries: Pulmonary arteries are normal in size, and demonstrate no intraluminal filling defects to suggest central pulmonary embolism. Lungs and pleura: Focal and patchy consolidation noted in the lung bases bilaterally right greater than left concerning for aspiration versus pneumonia. Trace right pleural effusion. No pneumothorax. Central and peripheral airways are patent. Mediastinum: Heart size is normal, without pericardial effusion. Atherosclerotic calcifications are noted in the aorta, great vessels and the coronary vasculature. No mediastinal or hilar adenopathy. Thoracic aorta is normal in caliber and enhancement. Esophagus is normal in caliber, without hiatal hernia. Bones and chest wall: No suspicious bony lesions. Ribs and thoracic spine appear intact throughout. Spine degenerative disc disease and facet arthropathy. Thyroid gland is within normal limits. No axillary or supraclavicular adenopathy. Abdomen: Visualized upper abdominal solid organs appear normal in the early arterial phase of enhancement. IMPRESSION: 1. No pulmonary embolus. 2. Multifocal consolidation involving the lung bases bilaterally suspicious for pneumonia versus aspiration. Dictated by: Soo Verdugo MD, PhD on 01/25/2019 at 14:51 Approved by: Soo Verdugo MD, PhD on 01/25/2019 at 14:58 ECG Data Attestation: I personally reviewed and interpreted this ECG as follows: Interpretation: Sinus rhythm no ST elevation or depression, left axis deviation rate of 89 SC interval 175 QRS of 90 and QTC of 395. MDM Narrative Medical decision making narrative: patient's lab works reviewed white count is 11, troponin and BNP are normal range. CT shows no plate pulmonary embolism. Multifocal consolidation involving lung bases bilaterally suspicious for pneumonia versus aspiration. I discussed with Dr. Early who is covering for patient's primary care Dr. Nielson. Discussed continuing his antibiotics which he states were doxycycline for another 7 days and 100 mg twice daily. Patient has follow-up on Monday for recheck we also discussed they may wish to follow or evaluate patient for aspiration. I also discussed this with the patient and his family. Patient had an ambulatory pulse ox of 93-94%. Discharge Plan Departure Patient Disposition: Home Clinical Impression: Dyspnea, Pneumonia Discharge Date/Time: 01/25/19 16:42 Interventions: ED Discharge Assessment Last Done: 01/25/19 16:42 Instructions: DI for Pneumonia -- Adult Activity Restrictions/Additional Instructions: Follow-up with your primary care physician in the next 3-5 days for recheck. Continue antibiotics twice daily as prescribed. Continue your other home medications as prescribed. Discussed with your physician if they wish to have a swallow eval or other testing regarding possible aspiration causing her symptoms. Return to the emergency department for new fevers, increasing shortness of breath, new chest pain or pressure, syncope, lightheadedness, persistent vomiting or other new or concerning symptoms. Prescriptions: New doxycycline hyclate 100 mg capsule 100 mg PO BID Qty: 20 RF: 0 No Action ipratropium-albuterol 0.5 mg-3 mg(2.5 mg base)/3 mL solution for nebulization 3 ml Inhalation QID RF: 0 simvastatin 40 mg tablet 40 mg PO DAILY RF: 0 telmisartan [Micardis] 40 mg tablet 40 mg PO DAILY RF: 0 omeprazole 20 mg capsule,delayed release(DR/EC) 20 mg PO DAILY RF: 0 furosemide 20 mg tablet 20 mg PO DAILY RF: 0 Referrals: Danish Nielson MD [Primary Care Provider] -
[2019-01-25 15:54] VITALS: PULSE 110; RESP 28; O2SAT 93
[2019-01-25 16:41] VITALS: BP 147/90; PULSE 93; RESP 20; O2SAT 94
== END 2019-01-25 16:42 | disposition home or self-care (01) ==
PROVIDERS: Emergency Provider Emergency Medicine; PCP Family Medicine
DX: R06.00 Dyspnea, unspecified (principal); J18.9 Pneumonia, unspecified organism; I10 Essential (primary) hypertension
CPT/HCPCS: 36591; 71275; 80048; 82550; 83880; 84484; 85025; 93005; 93010; 99283; 99285; Q9967

== ENCOUNTER → 2019-02-22 09:35 | Outpatient (CLI) | payer MEDICARE, OTHER, SELFPAY ==
--- NOTE | 2019-02-22 09:48 | DI.CT.S_ITS ---
PROCEDURE: CT CHEST WO CON INDICATIONS: PNEUMONIA TECHNIQUE: Noncontrast 5 mm thick sections acquired from the pulmonary apices to the posterior costophrenic angles. 7 mm thick coronal and sagittal MIP reformats were then acquired. For radiation dose reduction, the following was used: automated exposure control, adjustment of mA and/or kV according to patient size. COMPARISON: [facility], CR, XR CHEST 1V, 01/06/2019, 16:16. [facility], CT, CT ANGIO CHEST PE PROTOCOL, 01/25/2019, 14:06. FINDINGS: Image quality: Excellent. Lungs and pleura: Dense consolidation can be seen involving the inferior posterior right lower lobe. This area of dense consolidation is not significantly changed are to the prior CT dated 01/25/19. There are also milder, patchy infiltrates seen within the more superior right lower lobe and within the right middle lobe. Patchy infiltrate also be seen involving the posterior medial left lower lobe. The degree of patchy infiltrate is overall slightly increased compared to the 01/25/19 examination. There is a trace right-sided pleural effusion. No pneumothorax is seen. The central airways are patent. Mediastinum: Heart size is normal. Coronary artery calcifications are seen. No pericardial effusion. No mediastinal adenopathy by size criteria. Thoracic aorta and central pulmonary arteries are normal in size. Esophagus is normal in caliber. No hiatal hernia. Bones and chest wall: No suspicious bony lesions. No vertebral body compression fractures. No axillary or supraclavicular adenopathy by size criteria. Thyroid gland demonstrates no significant noncontrast abnormality. Right-sided [employer] shunt catheter tubing can be seen. 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 Visualized upper abdominal solid organs and bowel loops appear normal in the absence of contrast. IMPRESSION: Dense consolidation can be seen involving the right lower lobe, which is not improved compared to the prior CT dated 01/25/19. Given the lack of improvement in nearly a month, concern is raised for an underlying mass. If clinically appropriate, please consider a dedicated PET/CT for further evaluation The surrounding milder, patchy areas of infiltrate have worsened compared to the prior examination. Incidental note is made of: [employer] shunt catheter tubing Coronary artery calcifications Accessory spleen Dictated by: Laurent Castañeda M.D. on 02/22/2019 at 10:09 Approved by: Wily JulioD. on 02/22/2019 at 10:13
== END ==
PROVIDERS: PCP Family Medicine; Visit Provider Family Medicine
DX: J18.9 Pneumonia, unspecified organism (principal); I25.10 Atherosclerotic heart disease of native coronary artery without angina pectoris; Q89.09 Congenital malformations of spleen; Z98.2 Presence of cerebrospinal fluid drainage device
CPT/HCPCS: 71250